=== PATIENT | male | born 1960 | race Caucasian/White ===

== ENCOUNTER → 2019-09-25 | Outpatient (CLI) | payer BC | LOC: M LABSMTC 08:00 | PROVIDERS: ATTEND Ophthalmology Retina Specialist | DX: Z11.59 Encounter for screening for other viral diseases (principal); Z20.828 Contact with and (suspected) exposure to other viral communicable diseases | CPT/HCPCS: C9803; U0003 ==

== ENCOUNTER 2019-09-30 15:04 | Emergency (ER) | payer BC ==
[2019-09-30] MEDS ORDERED: METOCLOPRAMIDE INJ 10MG/2ML VIAL (J2765 PER 1) ONE (15:27)
[2019-09-30] MEDS ORDERED: METOCLOPRAMIDE INJ 10MG/2ML VIAL (J2765 PER 1) As Ordered ONE (15:27)
[2019-11-04 08:47] LABS: HEMATOCRIT 47.9 % (42.0-52.0); HEMOGLOBIN 16.3 g/dl (13.5-17.5); MEAN CORPUSCULAR HEMOGLOBIN 32.9 pg (27.0-33.0); MEAN CORPUSCULAR VOLUME 96.6 fl (80.0-96.0); PLATELET COUNT, AUTOMATED 241 10^3/uL (150-450); RED BLOOD COUNT 4.96 10^6/uL (4.30-6.10); WHITE BLOOD COUNT 12.8 10^3/uL (4.0-10.0)
[2019-11-18 00:01] LABS: ALBUMIN 4.3 GM/DL (3.2-5.2); ALT/SGPT 28 U/L (12-78); BILIRUBIN,TOTAL 0.5 MG/DL (0.2-1.0); BLOOD UREA NITROGEN 19 MG/DL (7-18); CALCIUM LEVEL 8.8 MG/DL (8.5-10.1); CARBON DIOXIDE LEVEL 26 MEQ/L (21-32); CHLORIDE LEVEL 109 MEQ/L (98-107); CREATININE FOR GFR 1.19 MG/DL (0.70-1.30); GLOMERULAR FILTRATION RATE > 60.0 (>56); GLUCOSE, FASTING 152 MG/DL (70-100); POTASSIUM SERUM 4.4 MEQ/L (3.5-5.1); SODIUM LEVEL 141 MEQ/L (136-145); TOTAL PROTEIN 7.7 GM/DL (6.4-8.2)
== END 2019-09-30 18:02 | disposition home or self-care (01) ==
LOC: M ED 15:04
DX: R11.2 Nausea with vomiting, unspecified (principal); Z79.899 Other long term (current) drug therapy
CPT/HCPCS: 74021; 80053; 83690; 85027; 99284; G0480; J2765

== ENCOUNTER → 2020-10-11 | Outpatient (CLI) | payer BC | LOC: M LABSMTC 10:10 | PROVIDERS: ATTEND Anesthesiology | DX: Z01.812 Encounter for preprocedural laboratory examination (principal); Z20.822 Contact with and (suspected) exposure to COVID-19 ==

== ENCOUNTER 2020-10-16 08:21 | Day surgery (SDC) | payer BC ==
[~2020-10-16] VITALS: Ht 182.9 cm; Wt 100.0 kg
[~2020-10-16 08:21] MED LIST: NS 1,000 ML IV ONE
[2020-10-16] MEDS ORDERED: propofoL 200 MG/20 ML VIAL As Ordered ONE ×2 (09:34→10:05)
[2020-10-16] MEDS ORDERED: LIDOCAINE 2% 100MG/5ML SDV (FOR ANES.) As Ordered ONE (09:35)
[2020-10-16 10:35] VITALS: BP 130/82
== END 2020-10-16 10:45 | disposition home or self-care (01) ==
LOC: M OPP 08:21
PROVIDERS: ATTEND Internal Medicine Gastroenterology
DX: Z12.11 Encounter for screening for malignant neoplasm of colon (principal); D12.6 Benign neoplasm of colon, unspecified

== ENCOUNTER → 2022-01-29 | Outpatient (REF) | payer BC | LOC: M SFHCDERM 16:51 | PROVIDERS: ATTEND Nurse Practitioner Family | DX: D49.2 Neoplasm of unspecified behavior of bone, soft tissue, and skin (principal); L82.0 Inflamed seborrheic keratosis ==

== ENCOUNTER → 2022-08-16 | Outpatient (CLI) | payer BC | LOC: M RAD 07:46 | PROVIDERS: ATTEND Physician Assistant | DX: N44.2 Benign cyst of testis (principal) ==

== ENCOUNTER → 2022-12-11 | Outpatient (CLI) | payer BC ==
[~2022-12-11] MED LIST changes: +ATOR40TA75 PO; -NS 1,000 ML IV ONE
== END ==
LOC: M WUC 14:16
PROVIDERS: ATTEND Physician Assistant
DX: Z01.818 Encounter for other preprocedural examination (principal)

== ENCOUNTER 2022-12-13 11:26 | Day surgery (SDC) | payer BC ==
[~2022-12-13] VITALS: Ht 182.9 cm; Wt 100.0 kg
[~2022-12-13 11:26] MED LIST changes: +LIDOCAINE 2% 100MG/5ML SDV (FOR ANES.) As Ordered ONE; +ONDANSETRON 4MG 2ML VIAL As Ordered ONE; +propofoL 200 MG/20 ML VIAL As Ordered ONE
[2022-12-13] MEDS ORDERED: ceFAZolin SOD 2 GM in IV 1 EA IV ONE (12:00)
[2022-12-13] MEDS ORDERED: BACITRACIN OINTMENT 30GM TUBE As Ordered ONE (12:48)
[2022-12-13] MEDS ORDERED: LIDOCAINE 1% MDV 20ML VIAL As Ordered ONE (12:48)
[2022-12-13] MEDS ORDERED: MIDAZOLAM INJ 2MG/2ML VIAL As Ordered ONE (13:04)
[2022-12-13] MEDS ORDERED: fentaNYL 100 MCG/2 ML INJECTION As Ordered ONE ×2 (13:04→14:01)
[2022-12-13] MEDS ORDERED: ACETAMINOPHEN 1000MG 100ML IV BAG As Ordered ONE (13:41)
[2022-12-13] MEDS ORDERED: propofoL 200 MG/20 ML VIAL As Ordered ONE (13:53)
[2022-12-13] MEDS ORDERED: LABETALOL 100MG/20ML VIAL As Ordered ONE (14:47)
[2022-12-13] MEDS ORDERED: LR 1,000 ML IV SCH (15:05)
[2022-12-13] MEDS ORDERED: ONDANSETRON 4MG 2ML VIAL IV PRN (15:05)
[2022-12-13] MEDS: fentaNYL 100 MCG/2 ML INJECTION IV PRN ×3 (15:31→15:47)
[2022-12-13] MEDS ORDERED: HYDROMORPHONE HCL 0.5 MG/ 0.5 ML SYRINGE IV PRN (15:35)
[2022-12-13] MEDS: oxyCODONE 5MG TAB PO PRN ×2 (15:39→16:09)
[2022-12-13] MEDS ORDERED: PERC5TAB12 PO (15:45)
[2022-12-13] MEDS ORDERED: CEPH500C PO (15:45)
[2022-12-13 17:44] VITALS: BP 160/88; TEMP 97.4; O2SAT 97
== END 2022-12-13 18:13 | disposition home or self-care (01) ==
LOC: M SDC 11:26
PROVIDERS: ATTEND Urology
DX: N43.3 Hydrocele, unspecified (principal); E78.00 Pure hypercholesterolemia, unspecified; Z79.899 Other long term (current) drug therapy
CPT/HCPCS: 55040; 88302; J0131; J0665; J0690; J1100; J1920; J2250; J2405; J3010

== ENCOUNTER → 2024-11-16 | Outpatient (REF) | payer BC ==
[~2024-11-16] MED LIST changes: +CEPH500C PO; -LIDOCAINE 2% 100MG/5ML SDV (FOR ANES.) As Ordered ONE; -ONDANSETRON 4MG 2ML VIAL As Ordered ONE; +PERC5TAB12 PO; -propofoL 200 MG/20 ML VIAL As Ordered ONE
== END ==
LOC: M SFHCDERM 16:24
PROVIDERS: ATTEND Nurse Practitioner Family
DX: C44.519 Basal cell carcinoma of skin of other part of trunk (principal)

== ENCOUNTER → 2024-11-30 | Outpatient (REF) | payer BC | LOC: M SFHCDERM 18:20 | PROVIDERS: ATTEND Physician Assistant | DX: C44.519 Basal cell carcinoma of skin of other part of trunk (principal) ==